=== PATIENT | female | born 1955 | race Caucasian/White ===

== ENCOUNTER → 2023-07-16 09:59 | Outpatient (REF) | payer MEDICARE, OTHER, SELFPAY | LOC: RCS 09:59 | PROVIDERS: ATTENDING PHYSICIAN Family Medicine | DX: R94.31 Abnormal electrocardiogram [ECG] [EKG] (principal) | CPT/HCPCS: 93306 ==

== ENCOUNTER → 2024-03-12 12:18 | Outpatient (REF) | payer MEDICARE, OTHER, SELFPAY | LOC: WDC 12:18 | PROVIDERS: ATTENDING PHYSICIAN Family Medicine | DX: Z12.31 Encounter for screening mammogram for malignant neoplasm of breast (principal) | CPT/HCPCS: 77063; 77067 ==

== ENCOUNTER → 2024-04-02 08:14 | Outpatient (REF) | payer MEDICARE, OTHER, SELFPAY ==
[2024-04-02 10:14] LABS: ALT (SGPT) 17 U/L (0-35); AST (SGOT) 25 U/L (14-36); Albumin 3.9 g/dl (3.5-5.0); Alkaline Phosphatase 100 U/L (38-126); Blood Urea Nitrogen 19 mg/dl (7-17); Calcium 9.4 mg/dl (8.4-10.2); Carbon Dioxide 23 mmol/L (22-30); Chloride 106 mmol/L (98-107); Glucose 105 mg/dl (70-99); Potassium 4.3 mmol/L (3.5-5.1); Sodium 143 mmol/L (135-145); Total Bilirubin 0.4 mg/dl (0.2-1.3); Total Protein 6.9 g/dl (6.3-8.2); eGFR > 60.00
== END ==
LOC: REG 08:14
PROVIDERS: ATTENDING PHYSICIAN Psychiatry & Neurology Neurology; FAMILY PHYSICIAN Family Medicine
DX: G45.9 Transient cerebral ischemic attack, unspecified (principal)
CPT/HCPCS: 36415; 80053

== ENCOUNTER → 2024-04-05 09:46 | Outpatient (REF) | payer MEDICARE, OTHER, SELFPAY | LOC: RAD 09:46 | PROVIDERS: ATTENDING PHYSICIAN Psychiatry & Neurology Neurology; FAMILY PHYSICIAN Family Medicine | DX: G45.9 Transient cerebral ischemic attack, unspecified (principal) | CPT/HCPCS: 70496; 70498; Q9967 ==

== ENCOUNTER 2024-11-18 18:44 | Emergency (ER) | payer MEDICARE, OTHER, SELFPAY ==
[2024-11-18 18:48] VITALS: BP 176/101
--- NOTE | 2024-11-18 22:08 | ED.GENMED ---
History of Present Illness
General
Chief Complaint: Skin Problem
Source: patient
Exam Limitations: none
Time Seen by Provider: 11/18/24 19:43
Nursing documentation reviewed up to this point in time: agreed with
History of Present Illness
History of Present Illness:
Patient is a 69-year-old female with history hypertension who presents to the emergency department for evaluation of a lesion on a scalp. Patient states that earlier this afternoon she was putting her hair up in a ponytail when she felt a bump on
the left side of her scalp. She states it is somewhat tender when she presses on it and she is concerned that it might be increasing in size throughout the day. Patient denies any fever, chills, or itch. She states that otherwise she feels well.
She is becoming more concerned about the bump as the day goes on and is now worried that it may be an aneurysm. She denies any headache, neck pain, or other neurologic symptoms.
Past History
Past History
ED Past Medical History: HTN and Other (Rosacea, sinusitis, ruptured ovarian cyst )
ED Past Surgical History: None
Patient has exhibited threatening behavior?: No
Social History
Tobacco: Non-smoker
Alcohol: None
Drug: None
Personal: Single
Living: with family
Family History
Family History: Other (Brother with Micky's granulomatosis, mother with hypertension )
Review of Systems
Review of Systems
Allergies reviewed?: Yes
All Other Systems: ROS reviewed and negative except as documented in HPI and ROS
Phy Exam
Physical Exam
Physical Exam:
Vitals: Hypertensive, otherwise vital signs stable. Afebrile
General: Patient is very well appearing, no acute distress. Nontoxic appearing
Skin: Warm and dry. Pustule to left parietal scalp as described below.
Head: Singular tiny pustule on left parietal scalp with very mild surrounding erythema and mild overlying tenderness. No fluctuance or induration.
Throat: Protecting airway
Neck: Normal ROM, no cervical spine tenderness
Cardiac: Regular rate
Pulm: No apparent respiratory distress
Abdomen: Nondistended
Extremities: No evidence of cyanosis or edema
Neuro: Grossly intact
Psychiatric: Normal affect.
Course
Vital Signs
Initial and Last Documented VS:
Initial Vital Signs
Temp Pulse Resp BP Pulse Ox
97.7 F 86 16 176/101 96
11/18/24 18:48 11/18/24 18:48 11/18/24 18:48 11/18/24 18:48 11/18/24 18:48
Last Documented Vital Signs
Temp Pulse Resp BP Pulse Ox
97.7 F 86 16 176/101 96
11/18/24 18:48 11/18/24 18:48 11/18/24 18:48 11/18/24 18:48 11/18/24 18:48
MDM/Problems Addressed
Differential Diagnosis Includes:
Not limited to: Folliculitis, bug bite, allergic reaction, dermatitis, urticaria, etc.
MDM/Problems Addressed:
69-year-old female presenting with tender lesion on her left parietal scalp which she noticed tonight. No fevers, chills, headache, or other neurologic symptoms. Physical exam as above. There is one singular pustule with very mild surrounding edema
and erythema of left parietal scalp. No fluctuance or induration. No evidence of other lesions or rash elsewhere. Patient neurologically intact.
Overall, impression is likely bug bite versus folliculitis. Clinically not consistent with abscess or cellulitis. No evidence of acute intracranial pathology. At this point � feel patient stable for discharge home with primary care follow up.
Advised warm compresses and close monitoring at home. Will prescribe topical clindamycin if symptoms persist to treat a possible folliculitis. Patient will follow with primary care later this week to ensure symptoms improving. Return precautions
discussed. Patient comfortable with plan.
Chronic conditions affecting care:
Hypertension
Acute Exacerbation and/or Progression of Chronic Illness:
Acutely hypertensive
*Pulse Oximetry
Patient hypoxic: no
Comment: 96% on room air
*EKG
Interpreted by ED Provider?: NA
*Brilliandeer Lopper Interpretation
Rate: Brilliandeer Lopper- N/A
*Critical Care Note
Total Time (30-74mins, 75-104mins- exclusive of procedures): Not Applicable
ED Attending Note
-
Portions of this chart may have been created with voice recognition software.� Occasional wrong word or��sound alike� substitutions may have occurred due to the inherent limitations of voice recognition software.
Discharge Plan
Departure
Patient Disposition: Home (Routine Discharge)
Date of Disposition: 11/18/24
Time of Disposition: 19:58
Patient with high blood pressure during this ER visit?: Yes
Condition: Good
Covid-19: Not Applicable
Discharge Problem:
Folliculitis of scalp
Prescriptions:
New
clindamycin phosphate 1 % solution
1 applic topical BID 7 Days Qty: 30 0RF
No Action
therapeutic multivitamin Tablet
1 tab PO DAILY PRN (Reason: supplement)
omeprazole 20 mg Capsule,Delayed Release(Dr/Ec)
20 mg PO DAILY
metoprolol tartrate 25 mg Tablet
12.5 mg PO BID
cholecalciferol (vitamin D3) 25 mcg (1,000 unit) Tablet
25 mcg PO DAILY
aspirin 81 mg capsule
81 mg PO DAILY Qty: 30 0RF
Activity Restrictions/Additional Instructions:
RETURN TO THE EMERGENCY DEPARTMENT ANY FEVERS, CHILLS, WORSENING PAIN, SWELLING, OR REDNESS OF AFFECTED AREA ON SCALP, SEVERE HEADACHE OR NECK PAIN, WORSENING OF CURRENT SYMPTOMS, OR ANY OTHER CONCERNS
- As discussed�I suspect you likely either have a bug bite to your scalp or a small area of folliculitis.
- Please apply warm compress over the next 2 days to the affected area. If symptoms persist you can try using the clindamycin solution twice a day to the affected area.
- Follow-up with your primary care provider in a few days for further evaluation/management that symptoms are improving. You may have to see dermatology if symptoms/worsen
Monitor your symptoms very closely return to the emergency department with any worsening/new symptoms for any other concerns or signs of worsening infection
Interventions
Interventions:
*Risk Screen - Suicide Last Done: 11/18/24 18:48
*General Assessment Last Done: 11/18/24 18:48
*Neglect/Abuse Screening Last Done: 11/18/24 18:48
*ED- Fall Risk Assessment Last Done: 11/18/24 20:24
*ED COVID-19 Vaccine History Last Done: 11/18/24 20:24
*Nursing Disposition Last Done: 11/18/24 20:24
ED-Skin Assessment Last Done: 11/18/24 20:24
Discharge Date and Time
Discharge Date/Time: 11/18/24 20:27
Print Language: MOLDOVAN
== END 2024-11-18 20:27 | disposition home or self-care (01) ==
LOC: EMR 18:44
PROVIDERS: EMERGENCY PHYSICIAN Emergency Medicine; FAMILY PHYSICIAN Family Medicine
DX: L73.8 Other specified follicular disorders (principal); I10 Essential (primary) hypertension
CPT/HCPCS: 99283

== ENCOUNTER → 2025-02-20 13:30 | Outpatient (REF) | payer MEDICARE, OTHER, SELFPAY | LOC: RAD 13:30 | PROVIDERS: ATTENDING PHYSICIAN Student in an Organized Health Care Education/Training Program | DX: R19.8 Other specified symptoms and signs involving the digestive system and abdomen (principal) | CPT/HCPCS: 76700 ==

== ENCOUNTER → 2025-03-13 12:03 | Outpatient (REF) | payer MEDICARE, OTHER, SELFPAY | LOC: WDC 12:03 | PROVIDERS: ATTENDING PHYSICIAN Student in an Organized Health Care Education/Training Program | DX: Z12.31 Encounter for screening mammogram for malignant neoplasm of breast (principal) | CPT/HCPCS: 77063; 77067 ==